=== PATIENT | male | born 1970 | race Asian ===

== ENCOUNTER 2019-02-07 12:47 | Outpatient (CLI) | payer OTHER ==
[2019-02-07 13:55] VITALS: BP 98/68
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
== END 2019-02-07 12:48 | disposition home or self-care (01) ==
LOC: SC 12:47
PROVIDERS: ATTEND Nurse Practitioner Family
DX: R06.83 Snoring (principal); G47.8 Other sleep disorders; G47.10 Hypersomnia, unspecified
CPT/HCPCS: 99204; 99212

== ENCOUNTER 2019-03-02 20:37 | Outpatient (CLI) | payer OTHER | END 2019-03-02 20:38 | disposition home or self-care (01) | LOC: SC 20:37 | PROVIDERS: ATTEND Internal Medicine Pulmonary Disease | DX: G47.33 Obstructive sleep apnea (adult) (pediatric) (principal) | CPT/HCPCS: 95810 ==

== ENCOUNTER 2019-03-26 12:58 | Outpatient (CLI) | payer OTHER ==
[2019-03-26 13:46] VITALS: BP 110/70
--- NOTE | 2019-03-26 13:46 | SLEEP CARE CONSULTATION ---
Information from patient questionnaire entered by Radha Miranda. I have reviewed and concur with the information entered by Radha Miranda. This document represents the service I personally performed and the decisions made by me, Radha Lopez RN, MSN, FLEET ADMINISTRATOR. History of Present Illness Initial [place] Sleepiness Scale score: 20 Current [place] Sleepiness Scale score: 19 Additional HPI information: SCOTT MISHRA returns for follow up of the recently performed polysomnography and informed of the polysomnography findings. I explained the pathophysiology behind obstructive sleep apnea. We then spent quite a bit of time discussing different treatment options. For mild obstructive sleep apnea, surgery and oral appliance are alternatives to nasal CPAP therapy but in moderate or severe cases, nasal CPAP is the most effective and reliable treatment. Because apnea is primarily in supine position, then positional management therapy could be effective. Methods discussed such as positioning with pillows, using a T-shirt with tennis balls in the back, and shown commercial products that have a pillow format on back to prevent supine sleep. I reviewed the impact of weight changes on sleep apnea and strongly recommended losing weight. After some discussion, the patient opted to go with the nasal CPAP therapy. Nasal autoCPAP set at [id number] will be ordered with rationale explained. A manual titration study will be ordered if unable to find optimal pressure with office adjustments. I explained how CPAP machine works with sample devices RespirLight Extractions Dreamstation and ResProNerve [id number] and what to expect when using the machine. Using CPAP every night in order to get used to it was emphasized. Patient advised to put CPAP mask on before getting into bed so as not to fall asleep without CPAP. To assist acclimation to CPAP use, it could also be used for a short time during day while reading or watching TV. The patient was instructed to call the CPAP supplier to discuss any mechanical problem that may occur. If the mask given is uncomfortable or is difficult to keep on through the night even with adjustment, contact the CPAP supplier as many will replace with another mask style if notified before 30 days. If snoring or perceives is not getting enough air or too much air from the machine, notify this office. AAS patient education PAP tips reviewed and given to patient. Patient prefers the Dreamstation. Patient counseled not drink alcohol less than 4 hours before bedtime as it can increase snoring and apnea. Patient was cautioned about risks of drowsy driving until sleepiness symptoms resolve. AAS patient education on snoring and sleep apnea given and reviewed at last visit. Sleep Study - Polysomnography Polysomnography findings: The quality of the study is good. The patient had slightly reduced sleep efficiency several awakenings after the sleep onset. The sleep architecture was abnormal for sleep fragmentation and reduced amount of time spent in slow wave sleep (N3). Respiratory monitoring showed mild obstructive sleep apnea-hypopnea (AHI = 13.0) associated with frequent arousals, oxyhemoglobin desaturation and mild hypoxia (radha oxygen saturation of 86%). The respiratory events occurred almost exclusively during supine sleep (supine AHI = 46.7; non-supine = 3.63). Snore was moderate to loud in intensity. There was no periodic leg movement of sleep. Cardiac rhythm was normal sinus rhythm rare premature ventricular contractions. No abnormal behavior (parasomnia) observed during the night. Allergies and Home Medications Known drug allergies: No Home medication list reviewed: Yes (no change from last visit except foot medi cation) Review of Systems Review of systems same as previous: No (plantar fascitis and orthotics given, foot fungus - medication given) Physical Exam Blood Pressure: 110/70 Cuff size: long Heart Rate: 83 O2 Saturation: 98 Height: 5 ft 5.8 in Weight: 202 lb 6.4 oz Body Mass Index: 32.8 BMI Classification: Obesity Class 1 Impression and Plan 1. Obstructive Sleep Apnea-Hypopnea Syndrome, mild, with lowest oxygen saturation of 86%. Obviously this is the cause of the patients symptoms of un refreshed sleep, and excessive daytime sleepiness. As mentioned above, the patient will be started on nasal autoCPAP therapy with pressure set at 4-15 cmH2 O. A manual titration study will be completed if unable to find optimal treatment pressure with office adjustments. Compliance guidelines also reviewed. A copy of compliance guidelines will be given for reference at check out. Because the apnea is more severe supine, I instructed to avoid sleeping supine using pillow positioning until able to start CPAP use. 2. Arrhythmia, rare premature ventricular contraction ( PVC) noted on study. Patient unaware of any heart irregularity in past. Arrhythmias can be caused by untreated apnea. Usually rare occurrence do not require treatment. However, patient advised to follow up with PCP to evaluate whether his history requires further evaluation. Patient agreed with plan. * Nasal auto CPAP therapy, pressure at 4-15 cm H2O. * Attempt to lose weight. * Avoid alcohol consumption near bedtime. * Avoid supine sleep until using CPAP. * The patient is again cautioned about driving until sleepiness completely resolves. * Follow up with PCP for further evaluation of arrhythmia. * Return one month after CPAP obtained. I will assess response to therapy and compliance at that time. I spent 100% of this 40 minute visit face to face with the patient with greater than 50% of this was spent time counseling the patient and coordination of care.
== END 2019-03-26 12:59 | disposition home or self-care (01) ==
LOC: SC 12:58
PROVIDERS: ATTEND Nurse Practitioner Family
DX: G47.33 Obstructive sleep apnea (adult) (pediatric) (principal); I49.3 Ventricular premature depolarization; E66.9 Obesity, unspecified; Z68.32 Body mass index [BMI] 32.0-32.9, adult
CPT/HCPCS: 99212; 99215

== ENCOUNTER 2019-06-03 10:42 | Outpatient (CLI) | payer OTHER ==
--- NOTE | 2019-06-03 12:16 | SLEEP CARE CONSULTATION ---
Information from patient questionnaire entered by Radha Miranda. I have reviewed and concur with the information entered by aRdha Miranda. This document represents the service I personally performed and the decisions made by me, Selene Sosa MD, [facility]. History of Present Illness Previous diagnosis: Mild, Obstructive Sleep Apnea-Hypopnea Syndrome AHI: 13.0 Reason for follow up: first compliance Equipment type: CPAP Equipment obtained from: [employer] Prior sleep studies: Yes HPI additional information: HPI: Mr. Sung returned today for follow up of nasal CPAP therapy. He was diagnosed to have mild obstructive sleep apnea-hypopnea syndrome. The patient wears a Respironics DreamWear nasal cushion mask. [employer] is his durable medical supplier. He reports using the device nightly and all through the night. The compliance report shows usage in 29 nights out of the past 30 nights, averaging 5 hours a night (he sleeps 2 hours in a couch before moving into the bedroom). He complained of no particular problem with the device such as soreness on the face, dry nose, epistaxis, nasal congestion or headache. He thinks that the pressure of 4 15 cmH2O is comfortable. On the CPAP therapy he notices improvement in his sleep quality, and that he wakes up feeling fresher in the morning and more awake/alert during the day. His notices no snore at all. The average residual AHI is 3.6; and average time in large leak per day is 7 minutes. The 90th percentile pressure is 6.8 cmH2O. CPAP Compliance Data - Data Reviewed with Patient Average duration of nightly device use: 5h 51s Compliance rate %: 93.3 Current pressure setting (cmH2O): 4-15 Humidity settin Heated hose settin Average residual AHI: 3.6 Average large leak: 7m 8s Subjective Current pressure setting perceived as: comfortable Initial [place] Sleepiness Scale score: 20 Current [place] Sleepiness Scale score: 21 Allergies and Home Medications Drug allergies reviewed: Yes Home medication list reviewed: Yes Review of Systems Review of systems same as previous: Yes Physical Exam Weight: 202 lb Impression and Plan IMPRESSION: 1. Obstructive Sleep Apnea-Hypopnea Syndrome, mild, with the patient doing well on nasal CPAP therapy. He has excellent compliance and significant clinical improvement. The current pressure appears effective and comfortable. Overall, he is very satisfied with treatment and plans to continue with it long-term. No adjustment is necessary today. PLAN: 1. Continue with autoCPAP set at 4 - 15 cmH2O. 2. Try to lose weight 3. Try ResMed N30i mask. 4. Return in one year for follow up or earlier if there is any problem with the treatment. I spent 100% of this 20 minute visit face to face with the patient with greater than 50% of this was spent time counseling the patient and coordination of care.
== END 2019-06-03 10:43 | disposition home or self-care (01) ==
LOC: SC 10:42
PROVIDERS: ATTEND Internal Medicine Pulmonary Disease
DX: G47.33 Obstructive sleep apnea (adult) (pediatric) (principal)
CPT/HCPCS: 99212; 99213

== ENCOUNTER 2020-08-06 15:05 | Outpatient (CLI) | payer OTHER ==
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
== END 2020-08-06 15:06 | disposition home or self-care (01) ==
LOC: SC 15:05
PROVIDERS: ATTEND Nurse Practitioner Family
DX: G47.33 Obstructive sleep apnea (adult) (pediatric) (principal)

== ENCOUNTER 2021-04-01 13:45 | Outpatient (CLI) | payer OTHER ==
--- NOTE | 2021-04-01 14:21 | SLEEP CARE CONSULTATION ---
Information from patient questionnaire entered by Radha Miranda. I have reviewed and concur with the information entered by Radha Miranda. This document represents the service I personally performed and the decisions made by me, Neena Vick ARNP. History of Present Illness Service Date and Time: 04/01/2021 1345 Previous diagnosis: Mild, Obstructive Sleep Apnea-Hypopnea Syndrome AHI: 13.0 Reason for follow up: other (8 month, questions about CPAP recall) Equipment type: CPAP Equipment obtained from: [employer] (getting supplies as needed) Mask style: Nasal Backup mask available: Yes (old mask) Last cushion change: last monday Prior sleep studies: Yes Year and Where: 2018 [facility] HPI additional information: SCOTT MISHRA was diagnosed to have mild, AHI 13.0, obstructive sleep apnea- hypopnea syndrome and returned today for CPAP therapy 8 month follow-up with recall questions. Sleep Study - Results Prior sleep studies: Yes Year and Where: 2018 [facility] CPAP Compliance Data - Data Reviewed with Patient Average duration of nightly device use: 4 hours 40 minutes Compliance rate %: 73.9 Current pressure setting (cmH2O): 4-15 (mean 5.7, avg 7.7, max 9.9) Humidity settin Heated hose settin Average residual AHI: 4.4 Average large leak: 9 seconds Subjective Missed days of use due to: reports: family emergency, illness, travel Patient concerns: denies: aerophagia, mask discomfort, air blowing in eyes, mask leak noise, condensation in mask/hose, nasal congestion, dry mouth, nose, throat, epistaxis, other Observed to snore while using device: No Current pressure setting perceived as: comfortable (to a little low) On therapy, patient: reports: sleeping better, awakening more refreshed, being more awake and alert during the day, more rested overall. denies: drowsiness while driving Initial [place] Sleepiness Scale score: 20 (in 2019) Current [place] Sleepiness Scale score: 16 Allergies and Home Medications Home medication list reviewed: Yes (no changes) Review of Systems Review of systems same as previous: Yes (no changes) Physical Exam Heart Rate: 83 O2 Saturation: 97 Height: 5 ft 5.8 in Weight: 210 lb Body Mass Index: 34.1 BMI Classification: Obese Impression and Plan 1. Obstructive Sleep Apnea-Hypopnea Syndrome, mild, with good treatment compliance and good apnea control. On CPAP therapy, the patient has better sleep quality and is more rested overall. Patient feels the pressure at the onset of the night when he turns his machine on is too low. I will increase his ramp pressure to 6 cm H2O. I will also adjust his pressures to reflect those pressures he is using to 6 -10 cmH2O. Patient has come in with questions about the recall on his DreamStation. Patient has already registered their device for the recall. Patient denies any black particles seen in machine or hoses, any unusual odors coming from device. Patient has not experienced any physical symptoms such as upper airway irritation, headache, skin or eye irritation, asthma, nausea/vomiting, difficulty breathing or chest pain. Patient informed that they may use an inline CPAP filter that they can obtain online to reduce chance of any particles being inhaled or ingested. We discussed thoroughly the health risks of not using the CPAP versus continuing use with the filter in place. If patient is not able to sleep due to waking up choking, gasping for air or other respiratory distress that they may decide to continue using it until it is either replaced or repaired. Patient was encouraged to lose weight for their overall health and to reduce apneas. Patient voiced understanding and agreement with plan. Patient was encouraged to lose weight for their overall health and to reduce apneas. Patient's apnea severity and rationale for treatment to reduce apnea, improve sleep quality and reduce cardiovascular and cerebrovascular events was reviewed. * Increase ramp starting pressure to 6 cmH2O * Change auto CPAP pressure to 6-10 cmH2O * Notify me if snoring with mask or feeling that the pressure is too much or too little * Attempt to lose weight * Call this office if any problems using CPAP * Return for follow up in 1 year, or sooner if concerns arise Counseling Topics: Spare mask, Weight loss health impact Visit Type: In Office Time Spent with Patient (minutes): 20 Provider Statement: I spent 100% of the Face to Face Visit with the patient with greater than 50% spent counseling the patient and coordination of care.
== END 2021-04-01 13:46 | disposition home or self-care (01) ==
LOC: SC 13:45
PROVIDERS: ATTEND Nurse Practitioner Family
DX: G47.33 Obstructive sleep apnea (adult) (pediatric) (principal)
CPT/HCPCS: 99212; 99213